=== PATIENT | female | born 1970 | race Caucasian/White ===

== ENCOUNTER 2016-08-20 05:13 | Observation (INO) | payer MEDICAID, OTHER ==
[~2016-08-20] VITALS: Ht 170.2 cm; Wt 85.5 kg
[~2016-08-20 05:13] MED LIST: CYCL10 PO; FentaNYL CITRATE-PF 250 MCG/5 ML VIAL IVP ONE; IBUP-1547 PO; MIDAZOLAM HCL 2 MG/2 ML VIAL IVP ONE; MORPHINE SULFATE/PF 0.5 MG/ML 10 ML AMP IVP ONE
[2016-08-20] MEDS ORDERED: RINGERS SOLUTION,LACTATED 1,000 ML IV ONE ×2 (05:30→07:18)
[2016-08-20] MEDS ORDERED: BUPIVACAINE HCL/PF 0.5% 30 ML VIAL ONE (06:09)
[2016-08-20] MEDS ORDERED: VANCOMYCIN HCL 1 GM/VIAL ONE (06:09)
[2016-08-20] MEDS ORDERED: ACETAMINOPHEN 1000 MG/ISO-OSM 100 ML IV ONE (06:20)
[2016-08-20] MEDS ORDERED: VANCOMYCIN HCL 1 GM/D5% WATER 200 ML IV ONE (06:30)
[2016-08-20] MEDS ORDERED: CLINDAMYCIN 900 MG/D5% WATER 50 ML IV ONE (06:30)
[2016-08-20] MEDS ORDERED: BENZOCAINE/MENTHOL LOZENGE [8 LOZENGES/PACKET] PO PRN (06:45)
[2016-08-20] MEDS ORDERED: MAG HYDROX/AL HYDROX/SIMETH 30 ML SUSP UDCUP PO PRN (06:45)
[2016-08-20] MEDS ORDERED: DiphenhydrAMINE HCL 50 MG/ML VIAL IVP PRN (06:45)
[2016-08-20] MEDS ORDERED: DEXAMETHASONE SOD PHOS 4 MG/ML VIAL IVP PRN (06:45)
[2016-08-20] MEDS ORDERED: ZOLPIDEM TARTRATE 10 MG TABLET PO PRN (06:45)
[2016-08-20] MEDS ORDERED: CYCLOBENZAPRINE HCL 10 MG TABLET PO PRN (07:30)
[2016-08-20] MEDS ORDERED: ONDANSETRON HCL 4 MG/2 ML VIAL IVP PRN (07:30)
[2016-08-20] MEDS ORDERED: HYDROmorphone 2 MG/ML SYRINGE IVP PRN (07:30)
[2016-08-20] MEDS ORDERED: PROMETHAZINE HCL 25 MG/ML VIAL IM PRN (07:30)
[2016-08-20] MEDS ORDERED: FentaNYL CITRATE-PF 100 MCG/2 ML VIAL IVP PRN (07:30)
[2016-08-20] MEDS ORDERED: MEPERIDINE-PF 25 MG/ML SYRINGE IVP PRN (07:30)
[2016-08-20] MEDS ORDERED: ZOLPIDEM TARTRATE 5 MG TABLET PO PRN (07:30)
[2016-08-20] MEDS: OXYGEN THERAPY IH SCH ×2 (08:00→20:00)
[2016-08-20 10:30] VITALS: BP 135/90
[2016-08-20] MEDS ORDERED: PNEUMOCOCCAL VACCINE POLYVALENT 0.5 ML VIAL [PPSV23] IM ONE (12:00)
[2016-08-20] MEDS: ACETAMINOPHEN 1000 MG/ISO-OSM 100 ML IV SCH ×2 (12:04→18:14)
[2016-08-20] MEDS: HYDROmorphone 2 MG/ML SYRINGE IVP PRN ×3 (14:08→22:22)
[2016-08-20 14:13] VITALS: BP 133/72
[2016-08-20] MEDS: CYCLOBENZAPRINE HCL 10 MG TABLET PO PRN (16:25)
[2016-08-20 17:17] VITALS: BP 137/72
[2016-08-20 19:53] VITALS: BP 95/71
[2016-08-20] MEDS: MUPIROCIN CALCIUM 2% 22 GM OINTMENT NASAL SCH (22:22)
[2016-08-20] MEDS ORDERED: EPHEDrine SULFATE 50 MG/ML VIAL IM ONE (23:58)
[2016-08-20] MEDS ORDERED: METOCLOPRAMIDE HCL 5 MG/ML 2 ML VIAL IVP ONE (23:58)
[2016-08-20] MEDS ORDERED: SUCCINYLCHOLINE CHLORIDE 20 MG/ML 10 ML VIAL IVP ONE (23:58)
[2016-08-20] MEDS ORDERED: 0.9% SODIUM CHLORIDE 10 ML VIAL IVP ONE (23:58)
[2016-08-20] MEDS ORDERED: KETOROLAC TROMETHAMINE 60 MG/2 ML VIAL IM ONE (23:58)
[2016-08-20] MEDS ORDERED: PROPOFOL 1% 20 ML VIAL IVP ONE (23:58)
[2016-08-20] MEDS ORDERED: DEXAMETHASONE SOD PHOS 4 MG/ML VIAL IVP ONE (23:58)
[2016-08-20] MEDS ORDERED: LIDOCAINE HCL/PF 2% 5 ML VIAL IM ONE (23:58)
[2016-08-20] MEDS ORDERED: ONDANSETRON HCL 4 MG/2 ML VIAL IVP ONE (23:58)
[2016-08-21] MEDS: ACETAMINOPHEN 1000 MG/ISO-OSM 100 ML IV SCH ×2 (00:26→05:30)
[2016-08-21 00:27] VITALS: BP 124/82
[2016-08-21] MEDS: HYDROmorphone 2 MG/ML SYRINGE IVP PRN (02:43)
[2016-08-21 05:18] VITALS: BP 121/61
[2016-08-21] MEDS: CYCLOBENZAPRINE HCL 10 MG TABLET PO PRN ×2 (05:36→09:27)
[2016-08-21 09:24] VITALS: BP 116/68
[2016-08-21] MEDS: MUPIROCIN CALCIUM 2% 22 GM OINTMENT NASAL SCH (09:27)
[2016-08-21] MEDS ORDERED: OxyCODONE HCL/ACETAMINOPHEN 10-325 MG TABLET PO PRN (12:00)
[2016-08-24] MEDS ORDERED: RINGERS SOLUTION,LACTATED 1,000 ML IV ONE (16:22)
[2016-08-24] MEDS ORDERED: MEPERIDINE-PF 25 MG/ML SYRINGE ONE (16:22)
== END 2016-08-21 10:59 | disposition home or self-care (01) ==
LOC: 4E 05:13
PROVIDERS: ADMIT Orthopaedic Surgery Orthopaedic Surgery of the Spine; ATTEND Orthopaedic Surgery Orthopaedic Surgery of the Spine
DX: M48.06 Spinal stenosis, lumbar region (principal)
CPT/HCPCS: 63047; 63048; 84703; 87081 ×2; 96374; 96375; 96376 ×2; 97161; 97165; G0238; G0378 ×2; J0131 ×2; J0330; J1100; J1170 ×2; J1885; J2250; J2274; J2405; J2704; J2765; J3010; J3370; J3490 ×4; J7120